=== PATIENT | female | born 1945 | race Hispanic/Latino ===

== ENCOUNTER 2023-11-24 15:09 | Emergency (ER) | payer MEDICARE ==
[~2023-11-24] VITALS: Ht 162.6 cm; Wt 66.0 kg
[~2023-11-24 15:09] MED LIST: FOSINOPRIL SODI10 MG PO; GLUCOPHAGE500 MG PO; IBUPROFEN800 MG PO; KONDREMUL2.5 ML/5 M PO; LEVEMIR FL100 UNIT/2 SQ; METFORMIN HCL500 M1 PO; MOTRIN IB200 MG PO; NORCO 5-325 TA1 EACH PO; SENNA-S TABLET1 EACH PO; TOUJEO SOL300 UNIT/1 SQ; TRULICITY0.75 MG/0. SQ
[2023-11-24] MEDS ORDERED: DICLOFENAC SODI75 MG PO (15:41)
[2023-11-24] MEDS ORDERED: NOVOLIN 70100 UNIT/2 SUB-Q (15:44)
[2023-11-24 16:10] LABS: BASOPHILS 0.5 % (0-2); EOSINOPHILS 0.6 % (0-6); HEMOGLOBIN 12.2 g/dL (12.0-18.0); LYMPHOCYTES 11.9 % (24-44); MCH 30.1 (27-36); MCHC 33.8 g/dl (30-36); MONOCYTES 8.7 % (0-12); NEUTROPHILS 78.3 % (39-80); PLATELET COUNT 211 K/uL (140-440); RBC 4.04 M/ul (4.3-5.7); RDW 13.4 (10.5-15.0)
[2023-11-24 16:13] LABS: INR 0.94 (0.80-1.30); PROTIME 12.2 Sec (11.2-14.2)
[2023-11-24 16:15] LABS: PARTIAL THROMBOPLASTIN TIME 26.8 Sec (22.9-41.3)
[2023-11-24] MEDS ORDERED: ondansetron HCL 4 MG/2 ML VIAL IV ONE (16:15)
[2023-11-24] MEDS ORDERED: SODIUM CHLORIDE 0.9% 1,000 ML IV PRN (16:15)
[2023-11-24 16:25] LABS: ALBUMIN 3.2 g/dL (3.4-5.0); ALBUMIN/GLOBULIN RATIO 0.84 (1.1-2.4); ALKALINE PHOSPHATASE 105 U/L (46-116); ALT (SGPT) 25 U/L (14-59); ANION GAP 13.1 (7-21); AST (SGOT) 11 U/L (15-37); BILIRUBIN, TOTAL 0.3 ng/dL (0.2-1.0); BUN/CREATININE RATIO 21.62 (6.0-28.6); CALCIUM 8.6 mg/dL (8.5-10.1); CARBON DIOXIDE 29 mmol/L (21-32); CHLORIDE 101 mmol/L (98-107); CREATININE, SERUM 0.74 mg/dL (0.55-1.02); GLOMERULAR FILTRATION RATE,EST 83 mL/min (>60); MAGNESIUM 1.6 mg/dL (1.8-2.4); POTASSIUM 4.1 mmol/L (3.5-5.1); UREA NITROGEN 16 mg/dL (7-18)
[2023-11-24 17:00] LABS: BILIRUBIN, URINE NEGATIVE (negative); BLOOD/HGB, URINE NEGATIVE (Negative); KETONE, URINE SMALL (Negative); LEUK ESTERASE, URINE NEGATIVE (negative); NITRITE, URINE POSITIVE (negative); PH, URINE 7.5 (5-7)
[2023-11-24 17:05] LABS: BACTERIA, URINE 3+ /hpf (negative); CASTS, URINE NONE SEEN \\lpf; COLLECTION TYPE, URINE CLEAN CATCH; CRYSTALS, URINE NONE SEEN (0-1+); EPITHELIAL CELLS, URINE SQUAMOUS 1+ /lpf (0-1+); RED BLOOD CELLS, URINE 0-1 /hpf (0-5); REFLEX CULTURE, URINE Yes (No); WHITE BLOOD CELLS, URINE 21-40 /HPF (0-5)
[2023-11-24 17:27] LABS: INFLUENZA B NAA NEGATIVE (NEGATIVE); RESPIRATORY SYNCYTIAL VIR NAA NEGATIVE (NEGATIVE)
[2023-11-24] MEDS ORDERED: CEFDINIR300 MG PO (17:55)
[2023-11-24] MEDS ORDERED: PAXLOVID 300-11 EAC1 PO (17:55)
[2023-11-24] MEDS ORDERED: CEFDINIR 300 MG CAP PO ONE (18:00)
[2023-11-24 18:09] VITALS: BP 120/57
--- NOTE | 2023-11-25 11:21 | EKG ---
[facility] [address] [place], [place] [address] Signed Normal sinus rhythm Normal ECG When compared with ECG of 23-JAN-2016 16:03, No significant change was found Confirmed by Glory Swartz MD ([id number]) on 11/25/2023 11:21:25 AM Electronically Signed By: GLORY SWARTZ MD 11/25/23 1121 PATIENT NAME: EMIR ROCHE Electrocardiogram DATE OF : 45 PHYSICIAN: GLORY SWARTZ MD REPORT #: [id number] REPORT IS CONFIDENTIAL AND NOT TO BE RELEASED WITHOUT AUTHORIZATION
== END 2023-11-24 18:11 | disposition home or self-care (01) ==
LOC: ED 15:09
PROVIDERS: Emergency Medicine
DX: R53.1 Weakness (principal); U07.1 COVID-19; N39.0 Urinary tract infection, site not specified; E11.9 Type 2 diabetes mellitus without complications; Z79.899 Other long term (current) drug therapy; Z79.4 Long term (current) use of insulin; Z79.84 Long term (current) use of oral hypoglycemic drugs
CPT/HCPCS: 36415; 70450; 80053; 81001; 83735; 83880; 84484; 85025; 85610; 85730; 87088; 87502; 93005; 93010; 99285-25; J7030; U0002